=== PATIENT | female | born 1995 ===

== ENCOUNTER 2022-03-18 07:38 | Inpatient (IN) ==
[2022-03-18 10:53] LABS: ABS Lymphocytes 1.1 10^3/ul (1.0-4.8); ABS Monocytes 0.5 10^3/ul (0-0.8); ABS Neutrophils 7.6 10^3/ul (1.5-7.7); Eosinophil % 0.2 %; Hematocrit 39 % (35-47); Lymphocyte % 12.1 %; Mean Corpuscular HGB Conc 33 g/dL (31-36); Mean Corpuscular Hemoglobin 31 pg (27-31); Mean Corpuscular Volume 93 fL (80-97); Mean Platelet Volume 8.7 fL (7.4-10.4); Nucleated Red Blood Cells % 0.1; Platelet Count 160 10^3/uL (150-450); Red Blood Count 4.21 10^6 /uL (3.70-4.87); Red Cell Distribution Width 15 % (10-15); White Blood Count 9.2 10^3/uL (3.5-10.8)
[2022-03-18 11:10] LABS: Urine Benzodiazepine Screen None Detected (None Detect); Urine Cannabinoids Screen None Detected (None Detect); Urine Opiates Screen None Detected (None Detect)
[2022-03-18] MEDS ORDERED: Lactated Ringers 1000 ml BAG 1,000 ML IV ONE (12:47)
[2022-03-18] MEDS ORDERED: Oxytocin in LR 20,000 MILLI.UNIT/1,000 ML BAG IV ONE (20:30)
[2022-03-19] MEDS ORDERED: Lidocaine 1.5% EPI 1:200,000 30 ML SDV ONE (00:54)
[2022-03-19] MEDS ORDERED: OBEPIDURAL (200 ML) 200 ML EPIDURAL ONE (00:54)
[2022-03-19] MEDS ORDERED: Bupivacaine 0.25% SDV PF 10 ML VIAL INJ ONE (01:00)
[2022-03-19] MEDS ORDERED: Lactated Ringers 1000 ml BAG 1,000 ML IV ONE (01:41)
[2022-03-19] MEDS ORDERED: Sodium Citrate/Citric Acid LIQ 15 ML UDC PO PRN (01:41)
[2022-03-19] MEDS ORDERED: OBEPIDURAL (200 ML) 200 ML EPIDURAL SCH (02:00)
[2022-03-19] MEDS ORDERED: Lactated Ringers 1000 ml BAG 1,000 ML IV SCH ×2 (02:00→06:00)
[2022-03-19] MEDS ORDERED: ceFOXitin 2 GM IVPREMIX 2 GM/50 ML BAG IVPB ONE (03:59)
[2022-03-19] MEDS ORDERED: Chloroprocaine 3% 20 ml VIAL ONE (04:07)
[2022-03-19] MEDS ORDERED: ceFAZolin VIAL VIAL ONE (04:38)
[2022-03-19] MEDS ORDERED: ceFOXitin 2 GM IVPREMIX 2 GM/50 ML BAG ONE (04:50)
[2022-03-19] MEDS ORDERED: Phenylephrine 40 mcg/mL 10mL (400mcg) SYRINGE ONE ×2 (04:57→05:15)
[2022-03-19] MEDS ORDERED: Acetaminophen IV 1 GM/100ML 1,000 MG/100 ML BAG IV ONE (05:25)
[2022-03-19] MEDS ORDERED: Glycerin ADULT 2.4 gm SUPP PR PRN (05:50)
[2022-03-19] MEDS ORDERED: Witch Hazel PAD JAR TOPICAL PRN (05:50)
[2022-03-19] MEDS ORDERED: Dibucaine 1% OINT 28.35 GM TUBE PR PRN (05:50)
[2022-03-19] MEDS ORDERED: Methylergonovine 0.2 mg AMPULE 1 ml AMP IM ONE (05:51)
[2022-03-19] MEDS ORDERED: Naloxone 0.4 mg VIAL 0.4 mg/ml 1 ml VIAL IV PRN (05:55)
[2022-03-19] MEDS ORDERED: HYDROmorphone 1 MG/1 ML SYRINGE ONE (05:58)
[2022-03-19] MEDS ORDERED: Oxytocin in LR 20,000 MILLI.UNIT/1,000 ML BAG IV SCH (06:00)
[2022-03-19] MEDS: fentaNYL 100 mcg/2 ml 50 MCG/ML VIAL IV PRN ×3 (06:34→06:55)
[2022-03-19] MEDS: HYDROmorphone 1 MG/1 ML SYRINGE IV PRN ×2 (07:21→08:31)
[2022-03-19] MEDS ORDERED: Ondansetron 4 mg VIAL 2 MG/ML 2 ml VIAL IV PRN (11:44)
[2022-03-20 06:38] LABS: ABS Eosinophils 0.1 10^3/ul (0-0.6); ABS Lymphocytes 1.8 10^3/ul (1.0-4.8); ABS Neutrophils 11.3 10^3/ul (1.5-7.7); Eosinophil % 0.4 %; Hematocrit 25 % (35-47); Lymphocyte % 12.8 %; Mean Corpuscular HGB Conc 33 g/dL (31-36); Mean Corpuscular Hemoglobin 31 pg (27-31); Mean Corpuscular Volume 95 fL (80-97); Mean Platelet Volume 8.3 fL (7.4-10.4); Platelet Count 125 10^3/uL (150-450); Red Blood Count 2.58 10^6 /uL (3.70-4.87); Red Cell Distribution Width 15 % (10-15); White Blood Count 14.2 10^3/uL (3.5-10.8)
[2022-03-21] MEDS ORDERED: Influenza vaccine *QUAD* *2022-23* 0.5 ML SYRINGE IM ONE (01:00)
[2022-03-21 07:54] VITALS: BP 102/69
== END 2022-03-21 11:30 | disposition home or self-care (01) | DRG 540 ==
LOC: MCHOBOUT 07:38 → MCHOB 09:07
PROVIDERS: ADMIT Midwife; ATTEND Midwife